=== PATIENT | male | born 1985 | race Two or more races ===

== ENCOUNTER 2024-10-22 23:19 | Inpatient (IN) | payer OTHER ==
[~2024-10-22] VITALS: Ht 175.3 cm; Wt 90.7 kg
--- NOTE | 2024-10-22 23:28 | NUR ---
PACIENTE ALERTA Y ORIENTADO X 3. REFIERE 5 GARCIA CON FIEBRE Y 3 GARCIA SIN PODER DORMIR. FLY DE DOLOR Y AFEBRIL AL REALIZAR TRIAGE.
--- NOTE | 2024-10-23 10:11 | NUR ---
SE ORIENTA A PTE SOBRE TRATAMIENTO MEDICO. SE BROOK MUESTRAS DE LAB POR ORDEN MEDICA
[2024-10-23 10:19] LABS: HEMATOCRIT 48.2 % (39.0-48.0); HEMOGLOBIN 16.6 g/dL (13-16.00); MEAN CELL VOLUME 87.4 fL (80.0-100.00); MEAN CORPUSCULAR HGB CONC 34.3 g/dl (32.0-36.0); RED BLOOD COUNT 5.52 M/uL (4.00-6.00); RED CELL DISTRIBUTION WIDTH 12.8 % (11.5-14.5)
[2024-10-23 11:12] LABS: PLATELET COUNT 55 K/uL (150-450)
[2024-10-23] MEDS ORDERED: 0.9 % SODIUM CHLORIDE 1,000 ML IV SCH ×2 (12:15→16:30)
[2024-10-23 13:22] LABS: CREATININE SERUM 1.29 mg/dL (0.70-1.30); GFR 61.38; POTASSIUM 3.65 mEq/L (3.5-5.1)
[2024-10-23] MEDS ORDERED: ONDANSETRON HCL 4 MG in 0.9 % SODIUM CHLORIDE 50 ML IV PRN (16:30)
[2024-10-23] MEDS ORDERED: ACETAMINOPHEN 500 MG GEL..CAP PO PRN (16:30)
[2024-10-23] MEDS ORDERED: PANTOPRAZOLE SODIUM 40 MG TABLET.DR PO SCH (17:00)
[2024-10-23 17:18] LABS: INR 1.06; PARTIAL THROMBOPLASTIN TIME 32.3 SECONDS (22.0-34.0); PROTHROMBIN TIME 11.5 SECONDS (9.0-11.5)
[2024-10-23 17:36] LABS: ALBUMIN 3.6 gm/dL (3.4-5.0); BILIRUBIN TOTAL 0.87 mg/dL (0.3-1.2); TOTAL PROTEIN 6.8 gm/dL (6.4-8.2)
[2024-10-23 17:38] LABS: BILIRUBIN,CONJUGATED 0.23 mg/dL (0.0-0.2); BILIRUBIN,UNCONJUGATED 0.64 mg/dL (0.0-0.6)
[2024-10-23 22:26] VITALS: BP 128/83
[2024-10-24 02:40] VITALS: BP 138/73; O2SAT 97
[2024-10-24 07:49] LABS: HEMATOCRIT 43.9 % (39.0-48.0); HEMOGLOBIN 14.9 g/dL (13-16.00); MEAN CELL VOLUME 87.7 fL (80.0-100.00); MEAN CORPUSCULAR HEMOGLOBIN 29.7 pg (27.00-32.0); MEAN CORPUSCULAR HGB CONC 33.9 g/dl (32.0-36.0); RED BLOOD COUNT 5.01 M/uL (4.00-6.00); RED CELL DISTRIBUTION WIDTH 12.7 % (11.5-14.5)
[2024-10-24 08:28] LABS: PLATELET COUNT 46 K/uL (150-450)
[2024-10-24 09:00] VITALS: BP 108/69; O2SAT 93
[2024-10-24 09:07] LABS: PH,URINE 5.5 (5.0-8.0); URINE APPEARANCE Clear; URINE BILIRRUBIN Small (NEGATIVE); URINE BLOOD Small; URINE COLOR Dark Yellow; URINE GLUCOSE Negative (NEGATIVE); URINE LEUKOCYTE Trace; URINE NITRATE Negative; URINE PROTEIN >=1000 (NEGATIVE)
[2024-10-24 09:11] LABS: URINE BACTERIA 22.6 uL (0.0-1933); URINE CAST 5.19 uL (0.0-1.40); URINE EPITHELIAL CELLS 43.7 uL (0.0-38.8); URINE RBC 6.8 uL (0.0-20.8); URINE WBC 10.6 uL (0.0-23.2)
[2024-10-24 10:39] LABS: URINE KETONE 40 (NEGATIVE)
[2024-10-24 17:35] VITALS: BP 140/84
[2024-10-25 02:29] VITALS: BP 97/59; O2SAT 96
[2024-10-25 08:15] VITALS: BP 100/62
[2024-10-25 13:04] LABS: HEMATOCRIT 43.6 % (39.0-48.0); HEMOGLOBIN 14.8 g/dL (13-16.00); MEAN CELL VOLUME 87.8 fL (80.0-100.00); MEAN CORPUSCULAR HEMOGLOBIN 29.8 pg (27.00-32.0); MEAN CORPUSCULAR HGB CONC 33.9 g/dl (32.0-36.0); PLATELET COUNT 71 K/uL (150-450); RED BLOOD COUNT 4.97 M/uL (4.00-6.00); RED CELL DISTRIBUTION WIDTH 12.8 % (11.5-14.5)
[2024-10-25 16:45] VITALS: BP 119/71; O2SAT 96
== END 2024-10-25 18:47 | disposition home or self-care (01) | DRG 866 ==
LOC: ER 23:21 → MEDI 10-23 17:03
PROVIDERS: General Practice; Internal Medicine; ADMIT Internal Medicine; ATTEND Internal Medicine
DX: B34.9 Viral infection, unspecified (principal); D69.6 Thrombocytopenia, unspecified; E86.0 Dehydration